=== PATIENT | female | born 1985 | race Caucasian/White ===

== ENCOUNTER → 2017-09-06 | Outpatient (CLI) | payer BC ==
[~2017-09-06] MED LIST: BUSP5TAB PO; FLUT1SPR5 EACH NARE; PANT20TA2 PO; SERO100T PO
[2017-09-06 11:38] LABS: BACTERIA, URINE RARE /hpf; BLOOD, URINE NEG (NEG); GLUCOSE,URINE NEG (NEG); KETONE, URINE NEG (NEG); MUCUS URINE FEW /lpf (OCC); NITRITE,URINE NEG (NEG); SQUAMOUS EPITHELIAL CELL URINE 11 /hpf (0-5); URINE COLOR YELLOW (YELLW/STRAW)
[2017-09-06 11:39] LABS: AUTOMATED NEUTROPHIL # 4.6 TH/MM3 (1.8-7.7); BASOPHIL % 0.4 % (0.0-2.0); EOSINOPHIL # 0.2 TH/MM3 (0-0.4); EOSINOPHIL % 2.3 % (0.0-4.0); HEMATOCRIT 38.9 % (35.0-46.0); HEMO FLAGS DIFF FINAL; LYMPH % 29.3 % (9.0-44.0); LYMPHOCYTE # 2.2 TH/MM3 (1.0-4.8); MEAN CELL VOLUME 87.9 FL (80.0-100.0); MEAN CORPUSCULAR HEMOGLOBIN 29.4 PG (27.0-34.0); MEAN CORPUSCULAR HGB CONC 33.5 % (32.0-36.0); MONO % 5.7 % (0.0-8.0); NEUT % 62.3 % (16.0-70.0); PLATELET COUNT 291 TH/MM3 (150-450); RED BLOOD COUNT 4.43 MIL/MM3 (4.00-5.30); RED CELL DISTRIBUTION WIDTH 13.8 % (11.6-17.2); WHITE BLOOD COUNT 7.4 TH/MM3 (4.0-11.0)
[2017-09-06 12:08] LABS: ANION GAP 7 MEQ/L (5-15); BICARBONATE 24.7 MEQ/L (21.0-32.0); BLOOD UREA NITROGEN 9 MG/DL (7-18); CHLORIDE 107 MEQ/L (98-107); GLOMERULAR FILTRATION RATE 87 ML/MIN (>89); GLUCOSE,FASTING 83 MG/DL (74-99); POTASSIUM 3.9 MEQ/L (3.5-5.1); SODIUM (NA) 139 MEQ/L (136-145)
[2017-09-06 12:17] LABS: BHCG SCREEN QUALITATIVE LESS THAN 1 MIU/ML (0-5)
== END ==
LOC: CPRE 10:43
PROVIDERS: ATTEND Obstetrics & Gynecology
DX: Z01.812 Encounter for preprocedural laboratory examination (principal); N87.9 Dysplasia of cervix uteri, unspecified
CPT/HCPCS: 36415; 80048; 81001; 84703; 85025

== ENCOUNTER → 2017-09-12 | Day surgery (SDC) | payer BC ==
[~2017-09-12] VITALS: Ht 91.4 cm; Wt 5.0 kg
[~2017-09-12] MED LIST changes: +*MEPERIDINE 25 MG INJ VIAL PERIprocedural Use ONLY ONE; +ACETAMINOPHEN 1000 MG/100 ML 100 ML IV ONE; +BUPIVACAINE/EPINEPHRINE 0.25% PF 10 ML VIAL INFIL ONE; +CHLORHEXIDINE GLUCONATE 2 % 1 PACK (2 CLOTHS) TOPICAL PRN; +DEXAMETHASONE SOD PHOS 4 MG/ML VIAL IV ONE; +DO NOT ADM ANY ANTICOAGULANT DRUGS PRN; +ESTROGENS CONJUGATED VAG CREA 15 APPL/30 GM TUBE ONE; +GELFOAM SIZE 100 ONE; +IODINE (STRONG-LUGOLS) SOLN 20 DROP/1 ML BTL TOPICAL ONE; +LACTATED RINGER'S 1000 ML IV PRN; +LIDOCAINE HCL 1% PF 5 ML SYRINGE OTHER ONE; +METOPROLOL TARTRATE 25 MG TAB PO PRN; +MIDAZOLAM HCL 2 MG/2 ML VIAL IV ONE; +ONDANSETRON HCL 4 MG/2 ML VIAL IV PUSH ONE; +POVIDONE IODINE 5% (ANTISEPSIS KIT) 4 APPLICATIONS EACH NARE PRN; +PROPOFOL 200 MG/20 ML AMP IV ONE; +SODIUM CHLORID 0.9% 500 ML IV PRN; +ceFAZolin 1,000 MG/NS 100 ML IV SCH
--- NOTE | 2017-09-12 09:20 | HHI.PR ---
Immediate Post Op Note Procedure Date: Sep 12, 2017 Pre Op Diagnosis: (1) Cervical dysplasia Post Op Diagnosis: (1) Cervical dysplasia Surgeon: Victoria Victoria Chief Executive(s): Rosalina Healy, MS3 U [facility] Procedure: Exam under anesthesia, Cervical cold knife cone, endocervical curettage Findings: Lugol's placed on cervix, no defects noted. Cervix retroflexed, 3 cm in diameter , normal contour and consistency, fornices maintained. Uterus anteverted 7cm in size, no adnexal masses Complications: none Specimen(s) removed: cervical cone biopsy and endocervical curettes Estimated blood loss: 20ml Anesthesia: LMA Fluids: 900ml LR IVF Urinary Output (mLs): 15 Patient to: PACU Patient Condition: Good Victoria Victoria MD Sep 12, 2017 09:20
--- NOTE | 2017-09-12 10:28 | MP ---
cc: VICTORIA VICTORIA MD DATE OF SURGERY 09/12/2017 PREOPERATIVE DIAGNOSIS Cervical dysplasia. POSTOPERATIVE DIAGNOSIS Cervical dysplasia. PROCEDURE PERFORMED Exam under anesthesia, cold knife cone of the cervix, endocervical curettage. INDICATIONS The patient is a 32-year-old who on colposcopy was found to have BRITTANY-2 of her cervix and endocervical curettage that was BRITTANY-1 positive. I discussed options of excisional procedure for further diagnosis and treatment. The patient was in agreement with care plan. The risks, benefits and alternatives discussed, consent signed on chart. SURGEON Victoria Victoria MD [employer]ER Yury Healy, -3, [facility] and staff ESTIMATED BLOOD LOSS 20 mL IV FLUIDS 900 mL of LR URINE OUTPUT 15 mL prior to the procedure ANESTHESIA General LMA. COMPLICATIONS None COUNTS Correct PREOPERATIVE ANTIBIOTICS Ancef DVT PROPHYLAXIS SCD's bilateral extremities FINDINGS On exam under anesthesia, the cervix was retroflexed 3 cm in diameter, normal contour and consistency. Fornices were maintained. The uterus was anteverted 7 cm in size, no adnexal masses appreciated. After placement of the Lugol's on the cervix there were no defects noted. PROCEDURE IN DETAIL After review of informed consent, the patient was taken to the operating room where general LMA was performed. The patient was placed in the dorsal lithotomy position in candy cane stirrups. The perineum was prepped and draped in a normal sterile fashion. Exam anesthesia was performed. See findings section. A weighted speculum was placed in the vagina and a heavy-weighted speculum was placed anteriorly for visualization. Lugol's was placed. No area of decreased absorption was noted. Retention sutures at 3 o'clock and 9 o'clock were placed to aid in hemostasis. Marcaine quarter percent with epinephrine was used to perform a paracervical block and a cervical space block. A sharp cone dissection was performed. Hemostasis was established with the Bovie. An endocervical curettage and a cytology brush was used to collect the specimen. Monsel's was placed followed by Surgicel. Surgicel was kept in place with stay sutures. Good hemostasis was noted. The speculum was removed from the vagina. Anesthesia was reversed and the patient was taken to PACU in stable condition. MD NING [place] /10:00 AM /10:23 AM
[2017-09-12 10:32] VITALS: BP 106/66; PULSE 76; RESP 18; TEMP 98.6; O2SAT 97
== END | disposition home or self-care (01) ==
LOC: HSDC 05:38
PROVIDERS: ATTEND Obstetrics & Gynecology
DX: N87.1 Moderate cervical dysplasia (principal); N72 Inflammatory disease of cervix uteri
CPT/HCPCS: 00940; 57520; 86850; 86900; 86901; 88305; 88307; J0131; J0690; J2175; J7120; J1100; J2250; J2405; J3010